=== PATIENT | female | born 1930 | race Caucasian/White ===

== ENCOUNTER → 2018-10-05 | Outpatient (CLI) | payer MEDICARE | LOC: M.RAD 11:03 | DX: S92.515G Nondisplaced fracture of proximal phalanx of left lesser toe(s), subsequent encounter for fracture with delayed healing (principal); Z88.0 Allergy status to penicillin; X58.XXXD Exposure to other specified factors, subsequent encounter ==

== ENCOUNTER → 2018-10-20 | Outpatient (CLI) | payer MEDICARE | LOC: M.ULTRA 13:00 | DX: I65.23 Occlusion and stenosis of bilateral carotid arteries (principal) ==